=== PATIENT | male | born 1940 | race Caucasian/White ===

== ENCOUNTER → 2024-06-12 13:23 | Outpatient (CLI) | payer OTHER, MEDICARE, SELFPAY ==
--- NOTE | 2024-06-12 14:26 | DI.ECHO.S_ITS ---
[facility] : : [id number] : : [place] : : [id number] : : Phone: [phone] Echocardiogram Report + + :Name: VICTORINA GORE Study Date: 06/12/2024 Height: 68 in : :Hospital ReadingLocation: Weight: 185 lb : : Gender: Male BSA: 2.0 m2 : :: 1940 Age: 83 yrs BP: 140/82 mmHg: :Reason For Study: SCREENING, ATRIAL FIBRILLATION : :Ordering Physician: SUKHI, : :OLIVIA Performed By: Lashell Raza : :Referring: OLIVIA ISBELL : + + Interpretation Summary 1) Normal left ventricular thickness, size, wall motion, and systolic function (EF 60-65%). 2) Normal right ventricular size and function. 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 No aortic regurgitation is present. 4) Compared to the Echo done 02/11/2012, well functioning bioprosthetic aortic valve is present on this study. Procedure: A two-dimensional transthoracic echocardiogram with color flow and Doppler was performed. The study quality was technically adequate. Comparison is made with the echocardiogram of 02/11/2012. The patient was in sinus bradycardia with heart rates between 45-55 bpm during the exam. Left Ventricle: The left ventricle is normal in size and wall thickness. The ejection fraction is estimated to be 55-60%. Left ventricular systolic function appears normal without focal wall motion abnormalities. Diastolic parameters suggest a relaxation abnormality of the left ventricle, consistent with probable normal filling pressures. Right Ventricle: The right ventricle is normal in size and function. Atria: The left atrium is moderately dilated. Right atrial size is normal. There is no Doppler evidence for an interatrial shunt. Mitral Valve: The mitral valve leaflets appear borderline thickened, but open well. There is mild mitral annular calcification. There is mild mitral regurgitation. Aortic Valve: There is a bioprosthetic aortic valve. The prosthetic aortic valve is well-seated. The prosthetic aortic valve appears to open well. The peak aortic velocity is 2.6 m/sec. The aortic valve mean gradient is 14 mmHg. No aortic regurgitation is present. Tricuspid Valve: The tricuspid valve leaflets are thin and pliable. There is trace tricuspid regurgitation. Pulmonary artery pressures cannot be estimated because of the lack of a measurable TR jet velocity. Pulmonic Valve: The pulmonic valve is not well visualized. There is no pulmonic valvular regurgitation. Great Vessels: The ascending aorta could not be visualized. The IVC is of normal diameter and collapses greater than 50% with a sniff. This suggests a low right atrial pressure of 3 mm Hg. Pericardium/ Pleura There is no pericardial effusion. There is no pleural effusion. MMode/2D Measurements & Calculations LVIDd: 4.8 cm LVOT diam: 2.0 cm LVIDs: 3.4 cm FS: 28.9 % EPSS: 0.29 cm IVSd: 0.87 cm LVPWd: 0.91 cm LV matson. diameter/BSA (cm/m^2): 2.4 LV sys. diameter/BSA (cm/m^2): 1.7 LA A2 area: 25.0 cm2 RA long axis: 5.1 cm LA A4 area: 21.8 cm2 RA area: 17.8 cm2 LA length (vol): 5.9 cm RA vol: 52.4 ml LA vol: 78.5 ml RA : 26.5 ml/m2 LA vol index: 39.7 ml/m2 IVC diam: 1.9 cm RVD1 (basal): 4.0 cm RVD2 (mid): 3.7 cm TAPSE: 1.7 cm Doppler Measurements & Calculations Ao V2 max: 256.9 cm/sec LVOT Max Perez: 96.0 cm/sec Ao V2 mean: 170.4 cm/sec LV V1 max P.7 mmHg Ao max P.3 mmHg LV V1 VTI: 22.9 cm Ao mean P.3 mmHg FIFI(I,D): 1.3 cm2 Ao V2 VTI: 55.8 cm FIFI(V,D): 1.2 cm2 sev ratio: 0.41 FIFI indexed to BSA (cm^2/m^2): 0.67 MV E max perez: 101.8 cm/sec TR max perez: 233.7 cm/sec MV A max perez: 68.9 cm/sec TR max P.0 mmHg MV E/A: 1.5 PA V2 max: 84.5 cm/sec Med Peak E' Perez: 7.0 cm/sec PA V2 mean: 66.0 cm/sec E/E' med: 14.4 PA mean P.8 mmHg Lat Peak E' Perez: 8.4 cm/sec PA pr(Accel): 36.2 mmHg E/E' lat: 12.1 E/e' average: 13.3 MV dec time: 0.24 sec SV(LVOT): 73.5 ml Reading Physician:05:43 PM
== END ==
PROVIDERS: PCP Family Medicine; Referring Provider Physician Assistant; Visit Provider Orthopaedic Surgery
DX: Z00.00 Encounter for general adult medical examination without abnormal findings (principal); Z95.2 Presence of prosthetic heart valve; I34.81 Nonrheumatic mitral (valve) annulus calcification; I34.0 Nonrheumatic mitral (valve) insufficiency
CPT/HCPCS: 93306